=== PATIENT | male | born 1970 | race African-American/Black ===

== ENCOUNTER 2023-01-01 17:25 | Emergency (ER) | payer MEDICAID, OTHER ==
[~2023-01-01] VITALS: Ht 188 cm; Wt 87.0 kg
[2023-01-01 17:35] VITALS: BP 157/104; PULSE 113; RESP 18; TEMP 98.6; O2SAT 98
== END 2023-01-01 20:51 | disposition left against medical advice (07) ==
LOC: ER 17:25
DX: L84 Corns and callosities (principal); M25.551 Pain in right hip; I10 Essential (primary) hypertension; Z88.6 Allergy status to analgesic agent; Z88.8 Allergy status to other drugs, medicaments and biological substances
CPT/HCPCS: 99281; 99283